=== PATIENT | male | born 1950 | race Caucasian/White ===

== ENCOUNTER → 2024-01-01 | Outpatient (CLI) | payer MEDICARE | END | disposition home or self-care (01) | LOC: SHCH 08:06 | PROVIDERS: ATTEND Internal Medicine Cardiovascular Disease | DX: I08.8 Other rheumatic multiple valve diseases (principal); R06.09 Other forms of dyspnea; R07.9 Chest pain, unspecified; I10 Essential (primary) hypertension; E11.9 Type 2 diabetes mellitus without complications | CPT/HCPCS: 93306 ==

== ENCOUNTER → 2024-11-11 | Outpatient (CLI) | payer MEDICARE ==
--- NOTE | 2024-11-11 11:37 | HMCIMG ---
ULTRASOUND OF THE PELVIS-LIMITED INDICATION: UTI COMPARISONS: None TECHNIQUE: Transabdominal real-time sonographic images were acquired earlier, and subsequently made available for review. FINDINGS/IMPRESSION: Urinary bladder appears normal. Prostate gland volume = 32 mL. Prevoid volume = 341 mL and abnormal postvoid volume = 108 mL.
--- NOTE | 2024-11-11 11:39 | HMCIMG ---
ULTRASOUND ABDOMEN COMPLETE INDICATION: Abdominal Pain COMPARISON: None. FINDINGS: The liver is enlarged and increased in echogenicity; no focal lesion demonstrated. Liver length is measured at 18.0 cm. Main portal vein is patent, and normal direction of vascular flow demonstrated. The common bile duct caliber measures 4.0 mm. A few small echogenic shadowing stones within the gallbladder neck without associated pericholecystic fluid. 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 Wall thickness measures 2.0 mm. The spleen is normal in size and echotexture. The spleen measures 10.0 cm. Visible portions of the pancreas appear unremarkable. The right kidney measures 10.0 x 5.2 x 5.0 cm,and is normal in echogenicity, without evidence for hydronephrosis or shadowing stones. The left kidney measures 10.4 x 5.4 x 4.8 cm,and is normal in echogenicity, without evidence for hydronephrosis or shadowing stones. Mild calcific plaque along the abdominal aortic vizcaino. Visible portions of the inferior vena cava are within normal limits. No free fluid demonstrated. IMPRESSION: Cholelithiasis without cholecystitis. Findings suggesting hepatomegaly and hepatic steatosis or other underlying hepatocellular disease process.
== END | disposition home or self-care (01) ==
LOC: RAH 10:39
PROVIDERS: ATTEND Internal Medicine
DX: K80.20 Calculus of gallbladder without cholecystitis without obstruction (principal); N39.0 Urinary tract infection, site not specified; R10.9 Unspecified abdominal pain; I70.0 Atherosclerosis of aorta
CPT/HCPCS: 76700; 76856